=== PATIENT | female | born 1970 | race Caucasian/White ===

== ENCOUNTER 2023-06-03 22:25 | Emergency (ER) | payer OTHER, SELFPAY ==
[2023-06-03 22:32] VITALS: BP 100/64; PULSE 67; RESP 18; TEMP 36.3; O2SAT 100; BMI 25.7
--- NOTE | 2023-06-03 23:14 | XRR_ITS ---
PROCEDURE INFORMATION: Exam: XR Left Foot Exam date and time: 06/03/2023 11:42 PM Age: 52 years old Clinical indication: Injury or trauma; Blunt trauma; Patient HX: Fall this evening at home. C/O left foot pain. ; Additional info: Pain, fall TECHNIQUE: Imaging protocol: Radiologic exam of the left foot. Views: 3 or more views. COMPARISON: No relevant prior studies available. FINDINGS: Bones/joints: No acute fracture or dislocation is seen. Soft tissues: Grossly unremarkable. XR/XR foot LT min 3V* [id number] IMPRESSION: No acute findings. Correlate and follow-up as clinically indicated.
--- NOTE | 2023-06-03 23:14 | XRR_ITS ---
PROCEDURE INFORMATION: Exam: XR Left Hip Exam date and time: 06/03/2023 11:35 PM Age: 52 years old Clinical indication: Injury or trauma; Blunt trauma (contusions or hematomas); Patient HX: Fall this evening at home landing onto left hip. C/O pain. ; Additional info: Hip pain, fall, please include pelvis TECHNIQUE: Imaging protocol: Radiologic exam of the left hip. Views: 2 or 3 views hip with pelvis when performed. COMPARISON: No relevant prior studies available. FINDINGS: Bones/joints: No acute fracture or dislocation. [id number] lower lumbar spondylosis. Soft tissues: Curvilinear and focal ossific densities within the soft tissues adjacent to the lesser trochanter/subtrochanteric region are most compatible with heterotopic ossification, correlate clinically. XR/XR hip LT 2-3V wo/w pel* [id number] IMPRESSION: No acute fracture or dislocation is seen, see above.
--- NOTE | 2023-06-03 23:16 | W.ED.FALL ---
Documented by User: EVE Tellez 06/04/23 00:55 HPI - Fall General: Chief Complaint: Fall Stated Complaint: Fell Leg Pain Time Seen by Provider: 06/03/23 22:49 History of Present Illness: Patient is a 52-year-old female that presents to the emergency department after a fall from standing. Patient states she was walking through an RV when her foot got caught and she twisted and fell landing on her left hip. She reports immediate pain and inability to get up. She had to crawl/scoot out of the RV to get to the vehicle to be transported.She denies striking her head or loss of conscious Patient is currently in a position of comfort with her knee flexed. She has no obvious open wounds. Patient's medical history includes gastric bypass. Denies any other chronic problems Associated symptoms-after fall: Denies abdominal pain, chest pain, confusion, difficulty walking, headache(s), hematuria or neck pain Review of Systems General: Reports: 10 or more systems reviewed and unremarkable except in HPI and below Const: Denies: fever(s), chills, change in appetite, change in weight, fatigue or malaise Eyes: Denies: change in vision, eye discomfort, eye discharge or eye redness ENMT: Denies: throat pain, enlarged tonsils, odynophagia, hoarseness, ear or mastoid pain, ear discharge, change in hearing, tinnitus, nasal discharge, nasal congestion, post nasal drip or sinus pain Card: Denies: chest pain, palpitations, irregular heart rhythm, edema, dyspnea on exertion, orthopnea or leg pain with exertion Resp: Denies: dyspnea, productive cough, non-productive cough, wheezing, stridor or chest congestion GI: Denies: abdominal pain, nausea, vomiting, dysphagia, diarrhea, constipation, bloating, GI cramping or hematochezia : Denies: flank pain, difficulty voiding, dysuria, urinary frequency, urinary urgency, urinary hesitancy, oliguria or hematuria Musc: Reports: extremity pain and joint pain; Denies: neck pain, back pain, joint swelling, joint redness, joint warmth or muscle weakness Skin/Breast: Denies: rash, pruritus, erythema, photosensitivity or new lesions Neuro: Denies: headache(s), numbness in extremities, weakness in extremities, sensory changes, lack of coordination, difficulty walking, frequent falls, dizziness, confusion, Slurred speech present, difficulty communicating thoughts, seizure-like activity or involuntary movements Endo: Denies: polyuria, polydipsia or tired all the time [place]/Lymph: Denies: easy bruising or easy bleeding Physical Exam Const: COMMON NORMALS: no acute distress, patient oriented x3 and alert GENERAL APPEARANCE: cooperative ORIENTATION/CONSCIOUSNESS: Yes awake, Yes oriented to person, Yes oriented to place and Yes oriented to time Neck/C-Spine: COMMON NORMALS: full ROM GENERAL: Yes normal visual inspection Lymph: LYMPHATIC: no lymphadenopathy noted Chest: COMMONS NORMALS: normal inspection of the chest Breast/axilla inspection: Yes no chest deformity, asymmetry, normal contours, no nodules, masses, tenderness Resp: COMMON NORMALS: normal respiratory effort, No retractions and No use of accessory muscles EFFORT & INSPECTION: Yes able to speak in complete sentences and Yes symmetric chest movement Cardio: COMMON NORMALS: regular rate and Peripheral pulses 2+ throughout RATE: regular rate PERIPHERAL PULSES: Peripheral pulses 2+ throughout GI: COMMON NORMALS: Soft to palpation, non-tender and No hepatosplenomegaly present INSPECTION: Yes normal to inspection PALPATION: Yes Soft to palpation and Yes No hepatosplenomegaly present RECTAL EXAM: deferred Extremity: COMMON NORMALS: normal to inspection GENERAL: Yes normal exam except as noted OTHER: Left lower extremity: Skin is clean dry and intact Patient is in a position of comfort with her hip and knee flexed at about 90 degrees. She is able to extend her knee. She attempts to extend her hip but this causes pain. Patient has sensation throughout. She is complaining of tenderness dorsal aspect of the foot she can dorsiflex her great toe Neuro: COMMON NORMALS: patient oriented x3 SENSORIUM/ORIENTATION: Yes alert, Yes oriented to person, Yes oriented to place and Yes oriented to time CRANIAL NERVES: Yes CN normal except as noted Psych: COMMON NORMALS: mental status grossly normal, Normal thought process present, cooperative, activity/motor behavior normal, denies homicidal ideation and denies suicidal ideation THOUGHT PROCESS: Normal thought process present Skin: COMMON NORMALS: no rashes or lesions noted, no wounds and turgor normal GENERAL SKIN EXAM: no rashes or lesions noted and turgor normal Course Vital Signs: Vital signs: Vital Signs Temperature 97.4 F L 06/03/23 22:32 Pulse Rate 79 11/12/23 00:57 Respiratory Rate 16 06/04/23 00:57 Blood Pressure 126/77 06/04/23 00:57 Pulse Oximetry 97 06/04/23 00:57 Oxygen Delivery Me thod Room Air 06/03/23 23:24 MDM - Fall Medical Decision Making Patient was evaluated in the emergency department for left hip pain. She underwent XR imaging to assess for fracture or dislocation. Differential diagnosis includes fracture, dislocation, muscle contusion, muscle tear, pelvic fracture. XR imaging reveals a left nondisplaced intertrochanteric fracture. We did obtain a CT of the hip and spoke with Dr. Ramirez. Patient has elected to transfer out, closer to home. I have spoken with [facility]vira in [place] as the patient is requesting to return closer to home. They are working on arranging an accepting facility. [facility] has accepted patient. They are asking for patient to be transferred ED to ED. Report given to Dr Lilly Lab Data 06/03/23 23:23 06/03/23 23:23 Radiology Impressions Foot X-Ray 06/03/23 23:14 IMPRESSION: No acute findings. Correlate and follow-up as clinically indicated. Hip/Pelvis X-Ray 06/03/23 23:14 IMPRESSION: No acute fracture or dislocation is seen, see above. ADDENDUM: 06/04/23 0032 Addendum: Subtle intratrochanteric lucency compatible with nondisplaced fracture. Hip CT 06/03/23 23:55 IMPRESSION: 1. Minimally displaced comminuted left femoral intertrochanteric fracture. 2. Chronic/incidental findings as described above. ADDENDUM: 06/04/23 0050 The findings were verbally communicated via telephone conference with Aleksandr Gee NP at 12:48 AM [facility] on 06/04/2023. The findings were acknowledged and understood. Laboratory Results WBC 8.86 10^3/uL (3.29-11.43) 06/03/23 23: RBC 3.75 10^6/uL (3.85-5.65) L 06/03/23 23:23 Hgb 11.90 g/dL (11.27-16.99) 06/03/23 23: Hct 37.1 % (36-47) 06/03/23 23: MCV 98.9 fl (85-98) H 06/03/23 23: MCH 31.7 pg (27-33) 06/03/23 23: MCHC 32.1 g/dL (30-55) 06/03/23 23: RDW 12.9 % (12.1-15.1) 06/03/23 23:23 Plt Count 231 10^3/cmm (157-399) 06/03/23 23: MPV 9.4 fL (7.4-10.4) 06/03/23 23: Neut % (Auto) 65.6 % 06/03/23 23: Lymph % (Auto) 21.1 % 06/03/23 23: [place] % (Auto) 8.2 % 06/03/23 23: Eos % (Auto) 4.0 % 06/03/23 23: Baso % (Auto) 0.8 % 06/03/23 23: Neut # (Auto) 5.81 10^3/uL (1.8-7.7) 06/03/23 23: Lymph # (Auto) 1.9 10^3/uL (0.8-4.8) 06/03/23 23: [place] # (Auto) 0.7 10^3/uL (0.2-0.9) 06/03/23 23: Eos # (Auto) 0.4 10^3/uL (0.0-0.8) 06/03/23 23: Baso # (Auto) 0.1 10^3/uL (0.0-0.1) 06/03/23 23: Nucleated RBC % (auto) 0 % 06/03/23 23: Nucleated RBCs # 0.0 /100WBC 06/03/23 23: PT 13.10 SECONDS (12.1-14.9) 06/03/23 23: INR 0.97 (0.8-1.2) 06/03/23 23:23 Sodium 138 mmol/L (136-145) 06/03/23 23:23 Potassium 4.1 mmol/L (3.5-5.1) 06/03/23 23: Chloride 100 mmol/L (98-107) 11/11/23 23:23 Carbon Dioxide 30 mmol/L (22-29) H 06/03/23 23:23 Anion Gap 12.1 (5-19) 06/03/23 23:23 BUN 8 mg/dL (6-20) 06/03/23 23:23 Creatinine 0.6 mg/dL (0.5-0.9) 06/03/23 23:23 GFR Calculation 104.6 mL/min (90-130) 06/03/23 23:23 Glucose 117 mg/dL (65-115) H 06/03/23 23:23 Calculated Osmolality 285 mOsm/kg (285-295) 06/03/23 23:23 Calcium 8.9 mg/dL (8.5-10.5) 06/03/23 23:23 Blood Type O Positive 06/04/23 00:15 Rho(D) Type Rh positive 06/04/23 00:15 Antibody Screen Negative 06/04/23 00:15 All radiology interpretation(s) finalized by discharge Discharge Plan Discharge Patient Disposition: Transfer to ED Clinical Impression: Closed intertrochanteric fracture Condition: Stable Coding Level of Care Code ED Music Intern for Chg Fwd Documented by User: Ronan Trimble DO 06/04/23 02:17 HPI - Fall General: Chief Complaint: Fall Stated Complaint: Fell Leg Pain Time Seen by Provider: 06/03/23 22:49 Course Vital Signs: Vital signs: Vital Signs Temperature 97.4 F L 06/03/23 22:32 Pulse Rate 79 06/04/23 00:57 Respiratory Rate 16 06/04/23 00:57 Blood Pressure 126/77 06/04/23 00:57 Pulse Oximetry 97 06/04/23 00:57 Oxygen Delivery Me thod Room Air 06/03/23 23:24 MDM - Fall Medical Decision Making Patient was evaluated in the emergency department for left hip pain. She underwent XR imaging to assess for fracture or dislocation. Differential diagnosis includes fracture, dislocation, muscle contusion, muscle tear, pelvic fracture. XR imaging reveals a left nondisplaced intertrochanteric fracture. We did obtain a CT of the hip and spoke with Dr. Ramirez. Patient has elected to transfer out, closer to home. I have spoken with Elvira in [place] as the patient is requesting to return closer to home. They are working on arranging an accepting facility. [facility] has accepted patient. They are asking for patient to be transferred ED to ED. Report given to Dr Lilly This patient was originally seen by XAVIER Díaz.? I agree with her history, evaluation, and treatment. Lab Data 06/03/23 23:23 06/03/23 23:23 Radiology Impressions Foot X-Ray 06/03/23 23:14 IMPRESSION: No acute findings. Correlate and follow-up as clinically indicated. Hip/Pelvis X-Ray 06/03/23 23:14 IMPRESSION: No acute fracture or dislocation is seen, see above. ADDENDUM: 06/04/23 0032 Addendum: Subtle intratrochanteric lucency compatible with nondisplaced fracture. Hip CT 06/03/23 23:55 IMPRESSION: 1. Minimally displaced comminuted left femoral intertrochanteric fracture. 2. Chronic/incidental findings as described above. ADDENDUM: 06/04/23 0050 The findings were verbally communicated via telephone conference with Aleksandr Gee NP at 12:48 AM [facility] on 06/04/2023. The findings were acknowledged and understood. Laboratory Results WBC 8.86 10^3/uL (3.29-11.43) 06/03/23 23: RBC 3.75 10^6/uL (3.85-5.65) L 06/03/23: Hgb 11.90 g/dL (11.27-16.99) 06/03/23: Hct 37.1 % (36-47) 06/03/23: MCV 98.9 fl (85-98) H 06/03/23: MCH 31.7 pg (27-33) 06/03/23: MCHC 32.1 g/dL (30-55) 06/03/23: RDW 12.9 % (12.1-15.1) 06/03/23: Plt Count 231 10^3/cmm (157-399) 06/03/23 23: MPV 9.4 fL (7.4-10.4) 06/03/23 23: Neut % (Auto) 65.6 % 06/03/23 23: Lymph % (Auto) 21.1 % 06/03/23 23: [place] % (Auto) 8.2 % 06/03/23 23: Eos % (Auto) 4.0 % 06/03/23 23: Baso % (Auto) 0.8 % 06/03/23 23: Neut # (Auto) 5.81 10^3/uL (1.8-7.7) 06/03/23: Lymph # (Auto) 1.9 10^3/uL (0.8-4.8) 06/03/23 23: [place] # (Auto) 0.7 10^3/uL (0.2-0.9) 06/03/23 23: Eos # (Auto) 0.4 10^3/uL (0.0-0.8) 06/03/23 23: Baso # (Auto) 0.1 10^3/uL (0.0-0.1) 06/03/23: Nucleated RBC % (auto) 0 % 06/03/23: Nucleated RBCs # 0.0 /100WBC 06/03/23 23: PT 13.10 SECONDS (12.1-14.9) 06/03/23 23: INR 0.97 (0.8-1.2) 06/03/23 23: Sodium 138 mmol/L (136-145) 06/03/23 23: Potassium 4.1 mmol/L (3.5-5.1) 06/03/23 23: Chloride 100 mmol/L (98-107) 06/03/23 23: Carbon Dioxide 30 mmol/L (22-29) H 06/03/23 23: Anion Gap 12.1 (5-19) 06/03/23 23:23 BUN 8 mg/dL (6-20) 06/03/23 23: Creatinine 0.6 mg/dL (0.5-0.9) 06/03/23 23: GFR Calculation 104.6 mL/min (90-130) 06/03/23 23:23 Glucose 117 mg/dL (65-115) H 06/03/23 23:23 Calculated Osmolality 285 mOsm/kg (285-295) 06/03/23 23:23 Calcium 8.9 mg/dL (8.5-10.5) 06/03/23 23:23 Blood Type O Positive 06/04/23 00:15 Rho(D) Type Rh positive 06/04/23 00:15 Antibody Screen Negative 06/04/23 00:15 Discharge Plan Discharge Patient Disposition: Transfer to ED Clinical Impression: Closed intertrochanteric fracture Condition: Stable Coding Level of Care Code ED Music Intern for Bimal Butler
[2023-06-03 23:19] VITALS: RESP 16; O2SAT 98
[2023-06-03] MEDS: morphine 4 mg/mL SDV 1 mL IVP (23:19)
[2023-06-03 23:24] VITALS: PULSE 85; RESP 20; O2SAT 98
[2023-06-03 23:26] LABS: Basophils # 0.1 10^3/uL (0.0-0.1); Basophils % 0.8 %; Eosinophils # 0.4 10^3/uL (0.0-0.8); Hematocrit 37.1 % (36-47); Lymphocytes # 1.9 10^3/uL (0.8-4.8); Lymphocytes % 21.1 %; Mean Corpuscular HGB Conc 32.1 g/dL (30-55); Mean Corpuscular Hemoglobin 31.7 pg (27-33); Mean Corpuscular Volume 98.9 fl (85-98); Mean Platelet Volume 9.4 fL (7.4-10.4); Monocytes # 0.7 10^3/uL (0.2-0.9); Monocytes % 8.2 %; Neutrophils # 5.81 10^3/uL (1.8-7.7); Neutrophils % 65.6 %; Nucleated Red Blood Cells % 0 %; Platelet Count 231 10^3/cmm (157-399); Red Blood Count 3.75 10^6/uL (3.85-5.65); Red Cell Distribution Width 12.9 % (12.1-15.1); White Blood Count 8.86 10^3/uL (3.29-11.43)
[2023-06-03] MEDS: ondansetron 2 mg/ML SDV 2 mL 4 MG IVP (23:41)
[2023-06-03 23:43] LABS: Anion Gap 12.1 (5-19); Blood Urea Nitrogen 8 mg/dL (6-20); Calcium 8.9 mg/dL (8.5-10.5); Carbon Dioxide 30 mmol/L (22-29); Chloride 100 mmol/L (98-107); Creatinine Clr Calc Pharmacy 106.6845; Glomerular Filtration Rate 104.6 mL/min (90-130); Glucose 117 mg/dL (65-115); Osmolality Calculated 285 mOsm/kg (285-295); Potassium 4.1 mmol/L (3.5-5.1); Sodium 138 mmol/L (136-145)
--- NOTE | 2023-06-03 23:55 | CTR_ITS ---
PROCEDURE INFORMATION: Exam: CT Left Lower Extremity Without Contrast, Hip Exam date and time: 06/04/2023 12:05 AM Age: 52 years old Clinical indication: Injury or trauma; Fall; Blunt trauma; Patient HX: Patient fell at home this evening landing onto left hip. C/O pain and unable to bear weight. ; Additional info: Intertroch fracture TECHNIQUE: Imaging protocol: CT of the left lower extremity without contrast was performed. Exam focused on the hip. Radiation optimization: All CT scans at this facility use at least one of these dose optimization techniques: automated exposure control; mA and/or kV adjustment per patient size (includes targeted exams where dose is matched to clinical indication); or iterative reconstruction. REPORTING DATA: Count of CT and Cardiac NM exams in prior 12 months: This patient has received 0 known CTs and 0 known cardiac nuclear medicine studies in the 12 months prior to the current study. COMPARISON: CR (PELVIS, ) 06/03/2023 11:35 PM RADIATION DOSE METRICS: Total DLP (mGy-cm): 536.1 FINDINGS: Bones/joints: Minimally displaced comminuted left femoral intertrochanteric fracture. No other acute fracture or dislocation is seen. Anterior angulation of the distal coccyx is noted and is most compatible with sequelae of remote insult/trauma. Soft tissues: Ossifications within the soft tissues posterior to the lesser trochanter/subtrochanteric region are noted and may represent heterotopic calcification versus sequelae of remote trauma/avulsion injury. Correlate and follow-up as clinically indicated. CT/CT hip LT wo con* [id number] IMPRESSION: 1. Minimally displaced comminuted left femoral intertrochanteric fracture. 2. Chronic/incidental findings as described above.
[2023-06-04 00:25] LABS: INR 0.97 (0.8-1.2)
[2023-06-04 00:57] VITALS: BP 126/77; PULSE 79; RESP 16; O2SAT 97
[2023-06-04] MEDS: HYDROcodone-acetaminophen 5-325 mg Tablet 2 TAB PO (01:08)
[2023-06-04 03:03] VITALS: BP 109/60; PULSE 78; RESP 16; O2SAT 96
[2023-06-04] MEDS: ondansetron 2 mg/ML SDV 2 mL 4 MG IVP ×2 (03:04→06:37)
[2023-06-04 03:06] VITALS: RESP 16; O2SAT 96
[2023-06-04] MEDS: morphine 4 mg/mL SDV 1 mL IVP ×3 (03:06→07:57)
[2023-06-04 06:37] VITALS: RESP 16
[2023-06-04 06:57] VITALS: BP 107/66; PULSE 72; O2SAT 95
--- NOTE | 2023-06-04 07:20 | PC.NURSE ---
patient able to urinate on a fracture noel
--- NOTE | 2023-06-04 07:47 | PC.NURSE ---
EMS arrived to transport the patient
[2023-06-04 07:57] VITALS: RESP 16; O2SAT 97
== END 2023-06-04 08:05 ==
PROVIDERS: Emergency Provider Nurse Practitioner
DX: S72.142A Displaced intertrochanteric fracture of left femur, initial encounter for closed fracture (principal); W01.0XXA Fall on same level from slipping, tripping and stumbling without subsequent striking against object, initial encounter
CPT/HCPCS: 36415; 73502; 73630; 73700; 80048; 85025; 85610; 86850; 86900; 96374; 96375; 96376; 99285; J2270; J2405